=== PATIENT | male | born 1990 | race Two or more races ===

== ENCOUNTER 2021-05-26 19:01 | Emergency (ER) | payer OTHER ==
[~2021-05-26] VITALS: Ht 170.2 cm; Wt 54.4 kg
[2021-05-26] MEDS ORDERED: NAPROXEN375 MG PO (22:14)
[2021-05-26] MEDS ORDERED: INTESTINEX680 M2 PO (22:14)
[2021-05-26] MEDS ORDERED: CLEOCIN HCL300 MG PO (22:14)
== END 2021-05-26 22:40 | disposition home or self-care (01) ==
LOC: ER 19:01
DX: L02.511 Cutaneous abscess of right hand (principal)